=== PATIENT | male | born 1950 ===

== ENCOUNTER 2017-06-26 08:02 | Emergency (ER) | payer BC ==
--- NOTE | 2017-06-26 08:35 | UC ---
Upper Extremity HPI - HPI Summary HPI Summary: 67 y/o male presents to the urgent care c/o fish hook in his LF thumb about 1 hr ago. Pt states he lives in [place], but is here on vacation. He was fishing at [employer] and he was trowing the fish hook when the hook got into his thumb. Pain is 3/10. Pt denies fever, SOB, chest pain, N/V/D. Pt's last Tetanus shot was on 11/17/2010. Pt has not other complains - History of Current Complaint Chief Complaint: UCGeneralIllness Stated Complaint: LFT HAND THUMB INJURY Time Seen by Provider: 06/26/17 08:33 Onset/Duration: Sudden Onset, Lasting Hours, Still Present Severity Initially: Moderate Severity Currently: Moderate Pain Intensity: 3 Pain Scale Used: 0-10 Numeric Location Of Pain: Is Discrete @ - LF thumb Character: Dull Aggravating Factor(s): Movement Alleviating Factor(s): Rest Associated Signs And Symptoms: Positive: Negative - Risk Factors Non-Orthopedic Risk Factor: Negative DVT Risk Factors: Negative Septic Arthritis Risk Factor: Negative - Allergies/Home Medications Allergies/Adverse Reactions: Allergies Allergy/AdvReac Type Severity Reaction Status Date / Time No Known Allergies Allergy Verified 06/26/17 08:07 Home Medications: Home Medications Amlodipine Besylate [Norvasc 10 mg tab] 10 mg PO DAILY 06/26/17 [History Confirmed 06/26/17] Aspirin [Aspirin 81 MG TAB] 81 mg PO DAILY 06/26/17 [History Confirmed 06/26/17] Atorvastatin* [Lipitor 40 MG*] 40 mg PO DAILY 06/26/17 [History Confirmed ] Ferrous Fumarate [Iron] 18 mg PO DAILY 06/26/17 [History Confirmed 06/26/17] Multiple Vitamin [Multivitamins] 1 cap PO DAILY 06/26/17 [History Confirmed ] PMH/Surg Hx/FS Hx/Imm Hx Previously Healthy: Yes Endocrine History: Dyslipidemia Cardiovascular History: Hypertension - Surgical History Surgical History: Yes Surgery Procedure, Year, and Place: hernia. melanoma. tonsilectomy - Family History Known Family History: Positive: Unknown - Social History Occupation: Retired Lives: With Family Alcohol Use: Daily Alcohol Amount: vodka Substance Use Type: None Smoking Status (MU): Never Smoked Tobacco - Immunization History Most Recent Tetanus Shot: current Review of Systems Constitutional: Negative Skin: Other - LF thumb with a fish hook Eyes: Negative ENT: Negative Respiratory: Negative Cardiovascular: Negative Gastrointestinal: Negative Genitourinary: Negative Motor: Negative Neurovascular: Negative Musculoskeletal: Negative Neurological: Negative Psychological: Negative All Other Systems Reviewed And Are Negative: Yes Physical Exam Triage Information Reviewed: Yes Appearance: Well-Appearing, No Pain Distress, Well-Nourished Vital Signs: Initial Vital Signs Temp 98.2 F 06/26/17 08:10 Pulse 64 06/26/17 08:10 Resp 16 06/26/17 08:10 BP 130/72 06/26/17 08:10 Pulse Ox 98 06/26/17 08:10 Vital Signs Reviewed: Yes Eye Exam: Normal Eyes: Positive: Conjunctiva Clear - PERRLA, EOMI ENT Exam: Normal ENT: Positive: Normal ENT inspection, Hearing grossly normal, Pharynx normal, TMs normal Dental Exam: Normal Neck exam: Normal Neck: Positive: Supple, Nontender, No Lymphadenopathy Respiratory Exam: Normal Respiratory: Positive: Chest non-tender, Lungs clear, Normal breath sounds, No respiratory distress Cardiovascular Exam: Normal Cardiovascular: Positive: RRR, No Murmur, Pulses Normal, Brisk Capillary Refill Abdominal Exam: Normal Abdomen Description: Positive: Nontender, No Organomegaly, Soft. Negative: CVA Tenderness (R), CVA Tenderness (L) Bowel Sounds: Positive: Present Musculoskeletal Exam: Normal Musculoskeletal: Positive: Strength Intact, ROM Intact, No Edema Neurological Exam: Normal Psychological Exam: Normal Skin: Positive: significant lesion(s) - LF thumb with treble fish hook, 2 of the hook barbs are enbedded in soft tissue, 1 is ienbedded near the distal LF # 1 phalax, the 2nd is enbedeed near the base of the phalanx medially. Upper Extremity Course/Dx - Course Course Of Treatment: 67 y/o male presents to the urgent care c/o fish hook in his LF thumb about 1 hr ago. Pt states he lives in [place], but is here on vacation. He was fishing at [employer] and he was trowing the fish hook when the hook got into his thumb. Pain is 3/10. Pt denies fever, SOB, chest pain, N/V /D. Pt's last Tetanus shot was on 11/17/2010. Hx obtained. Left thumb X-ray ordered. X-ray read by radiologist. Impression:Fish hook with 2 barbs embedded w /in soft tissue of the thumb at the level of proximal phalanx. Given absence of visualized osseous fragments of the fish hook in the bone is less likely. Pt Tetanus vaccine order. Tdap given by Nurse. Pt tolerated well IM vaccine. Time out performed and all involved parties agreed to the PT, procedure and laterality. Digital block performed with 1% Lidocaine at the base of Phalanx at the medal and lateral side. Good anesthesia was obtained. The artificial Lure was removed from the fish hook to release pressure. a ring cutter was used to try to cut each of the hook barbs w/o any success. Pt used his own wire cutters and cut each ricci. Dr Meyers removed the first ricci and the second bar was removed by passing it through the skin. Pt tolerated well procedure. wound cleaned and bacitracin applied, wound covered with sterile dressing. Pt's thumb and hand neurovascular intact w/ FROM. Pt Rx Keflex Po and Tylenol PO to alleviate pain. Advised to return for wound check in 2 days and f/u with and orthopedic Dr as soon as he get back to [place] to r/o any tendon damage. Pt understood and agreed. Pt left the clinic ambulating and hemodinamically stable , A&Ox3 - Differential Dx/Diagnosis Differential Diagnosis/HQI/PQRI: Contusion, Fracture (Closed), Laceration, Strain, Sprain, Other - foreign body, Provider Diagnoses: 1- Left thumb puncture wound with a fish hook Discharge - Discharge Plan Condition: Stable Disposition: HOME Prescriptions: Acetaminophen TAB* [Tylenol TAB*] 650 mg PO Q4H PRN #28 tab PRN Reason: Pain Cephalexin CAP* [Keflex 500 CAP*] 500 mg PO TID #21 cap Patient Education Materials: Puncture Wound (ED) Referrals: Non Staff,Doctor [Primary Care Provider] - [facility] [place] [facility] [Outside] Additional Instructions: 1- Please take full course of antibiotic to avoid resistance. 2-Please return to the urgent care in 2 days for wound check up. F/u with an Orthopedic DR in [place] as soon as you get home to r/o any tendon damage. 3- If you develop redness, fever, severe pain despite taking antibiotic, please go to the ER or return to the urgent care for further management.
[2017-06-26] MEDS ORDERED: Lidocaine 1%* 5 ML VIAL INJ ONE (09:00)
--- NOTE | 2017-06-26 09:35 | RAD ---
Indication: Injury with fish hook LEFT thumb. Comparison: No relevant prior exams available on the [facility] for comparison. Technique: AP, lateral, and oblique views LEFT thumb. REPORT AND IMPRESSION: There is a fishhook with at least 2 barbs embedded within the soft tissues of the thumb at the level of the proximal phalanx. Given absence of visualized osseous fragmentation extension of the fish hook into the bone is less likely. Overlying soft tissue swelling. Negative for fracture or malalignment.
[2017-06-26 10:43] VITALS: BP 141/75
[2017-06-26] MEDS ORDERED: Tetan/Diph/Pertus SYR(Tdap)* 0.5 ML SYR(BOOSTRIX) use SYR IM ONE (10:47)
== END 2017-06-26 10:58 | disposition home or self-care (01) ==
LOC: UCCORT 08:02
DX: S61.042A Puncture wound with foreign body of left thumb without damage to nail, initial encounter (principal); X58.XXXA Exposure to other specified factors, initial encounter; Y93.89 Activity, other specified; Y92.828 Other wilderness area as the place of occurrence of the external cause; Z23 Encounter for immunization; E78.5 Hyperlipidemia, unspecified; I10 Essential (primary) hypertension
CPT/HCPCS: 90715; 96372; 99203; G0463